=== PATIENT | female | born 1975 | race Caucasian/White ===

== ENCOUNTER 2018-02-26 03:41 | Emergency (ER) | payer SELFPAY ==
[2018-02-26] MEDS ORDERED: Ketorolac Tromethamine 30 MG/ML VIAL ONE (04:01)
[2018-02-26] MEDS ORDERED: Metoclopramide HCl 10 MG/2 ML VIAL ONE (04:01)
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
== END 2018-02-26 05:56 | disposition home or self-care (01) ==
LOC: ERS 03:41
DX: S09.90XA Unspecified injury of head, initial encounter (principal); E78.5 Hyperlipidemia, unspecified; F41.9 Anxiety disorder, unspecified; F32.9 Major depressive disorder, single episode, unspecified; F17.210 Nicotine dependence, cigarettes, uncomplicated; Z79.899 Other long term (current) drug therapy; W22.8XXA Striking against or struck by other objects, initial encounter
CPT/HCPCS: 70450; 96365; 96375; J1885; J2765

== ENCOUNTER 2018-04-07 19:34 | Emergency (ER) | payer SELFPAY ==
[2018-04-07] MEDS ORDERED: Acetaminophen/Codeine 30-300mg Tablet ONE (20:39)
[2018-04-07] MEDS ORDERED: Bupivacaine 0.5% 10 ML VIAL ONE ×2 (21:33→22:39)
== END 2018-04-07 23:03 | disposition home or self-care (01) ==
LOC: ERS 19:34
DX: K02.9 Dental caries, unspecified (principal); E78.5 Hyperlipidemia, unspecified; I44.7 Left bundle-branch block, unspecified; F41.9 Anxiety disorder, unspecified; F32.9 Major depressive disorder, single episode, unspecified; F17.210 Nicotine dependence, cigarettes, uncomplicated
CPT/HCPCS: 64400; J3490

== ENCOUNTER 2018-06-18 00:44 | Observation (INO) | payer SELFPAY ==
[2018-06-18 01:02] LABS: Bilirubin Negative (Negative); Blood, Urine Small (Negative); Clarity CLEAR (Clear); Glucose, Urine (Dipstick) Negative (Negative); Leukocyte Negative (Negative); Nitrite Negative (Negative); Protein, Urine (Dipstick) Negative (Neg-Trace); Specific Gravity, Urine 1.009 (1.002-1.036); Urobilinogen 0.2 mg/dL (0.2-1.0); pH, Urine 5.5 (5.0-9.0)
[2018-06-18 01:03] LABS: #Basophils 0.1 thou/uL (0.0-0.2); #Eosinphils 0.2 thou/uL (0.0-0.7); #Lymphocytes 3.6 thou/uL (1.20-3.40); #Monocytes 0.4 thou/uL (0.11-0.59); #Neutrophils 2.9 thou/uL (1.40-6.50); %Basophils 1.4 % (0.0-1.0); %Eosinophils 2.7 % (0.0-10.0); %Lymphocytes 49.6 % (21.0-51.0); %Monocytes 6.1 % (0.0-10.0); %Neutrophils 40.1 % (42.0-75.0); Hemoglobin 14.9 g/dL (12.0-16.0); Mean Corpuscular HGB CONC 36.2 g/dL (32.0-36.0); Mean Corpuscular Hemoglobin 32.8 pg (27.0-31.0); Mean Corpuscular Volume 90.8 fL (78.0-98.0); Mean Platelet Volume 7.5 fL (7.4-10.4); Platelet Count 318 thou/uL (130-400); RBC Distribution Width 11.3 % (11.5-14.5); Red Blood Cell (RBC) Count 4.53 mill/uL (4.20-5.40); White Blood Cell (WBC) Count 7.2 thou/uL (4.8-10.8)
[2018-06-18 01:04] LABS: Bacteria/HPF None Seen HPF (None Seen); Hyaline Casts/LPF 0-3 HYALINE CAST LPF (0-3 Hyaline); RBC/HPF 0-3 HPF (0-3); Squamous Epithelial 0-3 HPF (0-3); WBC/HPF 0-3 HPF (0-3)
[2018-06-18 01:25] LABS: ALT (SGPT) 22 U/L (8-55); AST (SGOT) 25 U/L (5-34); Albumin 4.4 g/dL (3.5-5.0); Alkaline Phosphatase 80 U/L (40-150); Anion Gap 14 mmol/L (10-20); BUN (Urea Nitrogen) 13 mg/dL (7.0-18.7); Bilirubin, Total 0.3 mg/dL (0.2-1.2); Calc. Creatinine Clearance 0 mL/min (70-130); Calcium 9.2 mg/dL (7.8-10.44); Carbon Dioxide 21 mmol/L (22-29); Chloride 108 mmol/L (98-107); Estimated GFR-MDRD 66; Globulin 3.1 g/dL (2.4-3.5); Glucose 103 mg/dL (70-105); Lipase 48 U/L (8-78); Protein, Total 7.5 g/dL (6.0-8.3); Sodium 139 mmol/L (136-145)
[2018-06-18] MEDS ORDERED: Lidocaine Viscous Sol 2% 15 ml UD Cup ONE (01:52)
[2018-06-18] MEDS ORDERED: Fentanyl 100 MCG/2 ML VIAL ONE ×5 (01:52→13:43)
[2018-06-18] MEDS ORDERED: Ketorolac Tromethamine 30 MG/ML VIAL ONE ×2 (01:52→13:31)
[2018-06-18] MEDS ORDERED: Mag-Al 1200 mg/1200 mg/30 ML UDCUP ONE (01:52)
[2018-06-18] MEDS ORDERED: Dicyclomine 20 MG TAB ONE (02:24)
[2018-06-18] MEDS ORDERED: Morphine 4 MG/ML VIAL ONE (02:24)
[2018-06-18] MEDS ORDERED: HYDROmorphone 0.5 MG/0.5 ML SYRINGE ONE (04:01)
[2018-06-18] MEDS ORDERED: Ondansetron PF 4 MG/2 ML Vial ONE ×2 (04:15→15:30)
[2018-06-18] MEDS ORDERED: Acetaminophen 1,000 MG in Premix Bag 1 BAG IVPB SCH (05:45)
[2018-06-18] MEDS ORDERED: Ondansetron ODT 4 MG TAB SL PRN (05:58)
[2018-06-18] MEDS ORDERED: Fentanyl 100 MCG/2 ML VIAL SLOW IVP PRN (05:58)
[2018-06-18] MEDS ORDERED: Ondansetron PF 4 MG/2 ML Vial IVP PRN ×2 (05:58→13:22)
[2018-06-18] MEDS: Dextrose 5 %-0.45 % NaCl 1,000 ML IV SCH ×2 (06:43→13:31)
[2018-06-18 06:52] VITALS: BMI 28.0
--- NOTE | 2018-06-18 07:33 | ULT ---
RIGHT UPPER QUADRANT ULTRASOUND: Date: 06/18/18 INDICATION: Right upper quadrant abdominal pain. COMPARISON: CT abdomen and pelvis dated 09/18/12 and abdominal ultrasound dated 03/21/09. FINDINGS: No focal hepatic lesion is evident. The gallbladder is contracted with multiple stones. Gallbladder w all measures 2.1 mm. No sonographic Waters's sign is reported. Common bile duct measures 2.4 mm. Flow is present within the main portal vein. Visualized aspects of the pancreas and right kidney are with in normal limits. The right kidney measured 10.0 cm in length. There is a right-sided extrarenal pelv es. No shaheed hydronephrosis is evident. IMPRESSION: Contracted gallbladder with gallstones, without overt sonographic evidence of acute cholecystitis. No additional sonographic abnormality within the right upper quadrant. POS: [facility]
[2018-06-18] MEDS ORDERED: cefOXitin Sodium/Dextrose,Iso 2 GM in Premix Bag 1 BAG IVPB SCH (09:00)
[2018-06-18] MEDS ORDERED: CEFAZOLIN 2 GM in Premix Bag 1 BAG IVPB SCH (09:00)
[2018-06-18] MEDS ORDERED: cefOXitin 2 GM VIAL ONE (12:06)
[2018-06-18] MEDS ORDERED: Sodium Chloride 0.9% 100 ML ONE (12:07)
[2018-06-18] MEDS ORDERED: Bupivacaine/Epinephrine 0.25% 30 ML VIAL ONE (12:37)
[2018-06-18] MEDS ORDERED: Mag-Al 1200 mg/1200 mg/30 ML UDCUP PO PRN (13:22)
[2018-06-18] MEDS ORDERED: Morphine 2 MG/ML SYRINGE SLOW IVP PRN (13:22)
[2018-06-18] MEDS ORDERED: Dextrose 5% in Water 1,000 ML IV PRN (13:22)
[2018-06-18] MEDS ORDERED: hydrALAZINE 20 MG/ML VIAL SLOW IVP PRN (13:22)
[2018-06-18] MEDS ORDERED: Morphine 4 MG/ML VIAL SLOW IVP PRN (13:22)
[2018-06-18] MEDS ORDERED: Calcium Carbonate 500 MG ChewTAB PO PRN (13:22)
[2018-06-18] MEDS ORDERED: Dextrose 50% Abboject 50 ML SYRINGE SLOW IVP PRN (13:22)
[2018-06-18] MEDS ORDERED: Promethazine HCl 25 MG/ML VIAL IM PRN ×2 (13:22→13:30)
[2018-06-18] MEDS ORDERED: HYDROcodone/Acetaminophen 10/325 mg Tablet PO PRN (13:22)
[2018-06-18] MEDS ORDERED: Ketorolac Tromethamine 30 MG/ML VIAL IVP PRN (13:30)
[2018-06-18] MEDS ORDERED: Ondansetron HCl/PF 4 MG/2 ML Vial IVP PRN (13:30)
[2018-06-18] MEDS ORDERED: Meperidine HCl/PF 25 MG/ML VIAL SLOW IVP PRN (13:30)
[2018-06-18] MEDS ORDERED: Promethazine HCl 25 MG/ML VIAL SLOW IVP PRN (13:30)
[2018-06-18] MEDS ORDERED: Morphine Sulfate 2 MG/ML SYRINGE SLOW IVP PRN (13:30)
[2018-06-18] MEDS ORDERED: HYDROmorphone 2 MG/ML VIAL SLOW IVP PRN (13:30)
[2018-06-18] MEDS ORDERED: Meperidine HCl/PF 25 MG/ML VIAL ONE (13:32)
[2018-06-18] MEDS ORDERED: Promethazine HCl 25 MG/ML VIAL ONE (13:34)
[2018-06-18] MEDS: D5 1/2 NS w/20 mEq KCL 1,000 ML IV SCH ×2 (14:31→20:27)
--- NOTE | 2018-06-18 15:00 | HP ---
CHIEF COMPLAINT: Right upper quadrant abdominal pain. HISTORY OF PRESENT ILLNESS: This is a 42-year-old female who developed severe right upper quadrant pain, radiating to back, associated with nausea. No vomiting. No fever. Last night came to the emergency room, was found to have gallstones. PAST MEDICAL HISTORY: Hyperlipidemia. PAST SURGICAL HISTORY: Hysterectomy. MEDICATIONS: ALLERGIES: ALLERGY TO HYDROCODONE CAUSING ITCHING. SOCIAL HISTORY: She is single. Works at a convenience store. Smokes one pack per week. Social alcohol. FAMILY HISTORY: Heart disease, prostate cancer, and esophageal cancer. PHYSICAL EXAMINATION: VITAL SIGNS: Temperature 98.2, pulse 74, blood pressure 126/73. GENERAL: She is a well-developed, well-nourished female, in no apparent distress. HEENT: No jaundice. LUNGS: Clear. HEART: Regular rate and rhythm. ABDOMEN: Soft. Mild tenderness in the right upper quadrant. EXTREMITIES: Unremarkable. LABORATORY DATA: Her white count is 7.2, hemoglobin and hematocrit 14 and 41, and platelet count 318. Electrolytes fine. LFTs normal. Urinalysis clear. Ultrasound showed cholelithiasis. No evidence of acute cholecystitis. The common bile duct was 2.4 mm. ASSESSMENT: Severe biliary colic. PLAN: Laparoscopic cholecystectomy. CONSENT: I discussed planned procedure as well as risk of bleeding, infection, injury to bile duct, injury to bowel, need to open. She understands and gives informed consent. Job ID: [id number]
[2018-06-18] MEDS ORDERED: Rocuronium Bromide 10 MG/ML (10ML VIAL) ONE (15:30)
[2018-06-18] MEDS ORDERED: Lidocaine 1% PF 5 ML VIAL ONE (15:30)
[2018-06-18] MEDS ORDERED: Glycopyrrolate 0.2 MG/ML 5 ML SYRINGE ONE (15:30)
[2018-06-18] MEDS ORDERED: Dexamethasone 20 MG/5 ML VIAL ONE (15:30)
[2018-06-18] MEDS ORDERED: PROPOFOL 200 MG/20 ML VIAL ONE (15:30)
[2018-06-18] MEDS: HYDROcodone/Acetaminophen 10/325 mg Tablet PO PRN ×2 (15:51→22:22)
[2018-06-18] MEDS: Ketorolac Tromethamine 30 MG/ML VIAL IVP SCH ×2 (17:21→22:31)
[2018-06-18] MEDS: Famotidine 20 MG TAB PO SCH (20:25)
[2018-06-18] MEDS: Famotidine/PF 20 mg/2ml Vial SLOW IVP SCH (20:27)
--- NOTE | 2018-06-18 20:44 | OP ---
DATE OF PROCEDURE: 06/18/2018 PREOPERATIVE DIAGNOSIS: Chronic cholecystitis. PROCEDURE PERFORMED: Laparoscopic cholecystectomy. INDICATIONS: A 42-year-old female, who has been having episodic right upper quadrant pain. She had a very severe episode last night. Ultrasound showed cholelithiasis. FINDINGS: She had a contracted gallbladder. There were adhesions to it. Stones were present. Cystic duct did not appear to be dilated. DESCRIPTION OF PROCEDURE: After informed consent was obtained, the patient was taken to the operating room, given general endotracheal anesthesia, placed in the supine position. Abdomen was prepped and draped in usual fashion. Local anesthesia was infiltrated subcutaneously and deep. Subumbilical incision was performed. Subcu was divided sharply. The fascia was grasped with two stay sutures of 0 Vicryl placed in each side of midline. Midline was incised. Digital palpation revealed no local adhesions. A blunt 10/12 trocar was inserted. Pneumoperitoneum was created to a pressure of 15 mmHg. A 0-degree laparoscope was inserted under direct vision. Three 5 mm ports were placed subcostally. The gallbladder was grasped and advanced superiorly. Peritoneum was lysed distally, revealed cystic duct and artery, these were dissected out. The cystic duct and artery were triply ligated with hemoclips and divided. The gallbladder was removed from its fossa utilizing electrocautery, removed from the abdomen through the umbilical port. Hemostasis was assured. Trocars and retractors were removed. The fascia was closed with interrupted 0 Vicryl suture. The skin was closed with interrupted 4-0 Rapide. Dermabond was applied. The patient tolerated the procedure well, transferred to Recovery in good condition. Sponge and needle count verified correct x2. Job ID: [id number]
[2018-06-19 05:07] LABS: #Lymphocytes 1.5 thou/uL (1.20-3.40); #Monocytes 0.7 thou/uL (0.11-0.59); %Basophils 0.5 % (0.0-1.0); %Eosinophils 0.4 % (0.0-10.0); %Lymphocytes 15.8 % (21.0-51.0); %Monocytes 7.4 % (0.0-10.0); Hemoglobin 13.3 g/dL (12.0-16.0); Mean Corpuscular HGB CONC 35.1 g/dL (32.0-36.0); Mean Corpuscular Hemoglobin 32.6 pg (27.0-31.0); Mean Corpuscular Volume 92.8 fL (78.0-98.0); Platelet Count 292 thou/uL (130-400); RBC Distribution Width 11.5 % (11.5-14.5); Red Blood Cell (RBC) Count 4.09 mill/uL (4.20-5.40); White Blood Cell (WBC) Count 9.2 thou/uL (4.8-10.8)
[2018-06-19 05:08] LABS: ALT (SGPT) 37 U/L (8-55); AST (SGOT) 34 U/L (5-34); Alkaline Phosphatase 62 U/L (40-150); Anion Gap 13 mmol/L (10-20); BUN (Urea Nitrogen) 12 mg/dL (7.0-18.7); Bilirubin, Total 0.6 mg/dL (0.2-1.2); Calc. Creatinine Clearance 119 mL/min (70-130); Carbon Dioxide 21 mmol/L (22-29); Chloride 105 mmol/L (98-107); Estimated GFR-MDRD 84; Globulin 2.6 g/dL (2.4-3.5); Glucose 110 mg/dL (70-105); Lipase 10 U/L (8-78); Protein, Total 6.6 g/dL (6.0-8.3); Sodium 135 mmol/L (136-145)
[2018-06-19] MEDS: HYDROcodone/Acetaminophen 10/325 mg Tablet PO PRN ×2 (05:40→11:39)
[2018-06-19] MEDS: Ketorolac Tromethamine 30 MG/ML VIAL IVP SCH ×2 (05:42→11:12)
[2018-06-19] MEDS: D5 1/2 NS w/20 mEq KCL 1,000 ML IV SCH (05:43)
[2018-06-19] MEDS: Famotidine/PF 20 mg/2ml Vial SLOW IVP SCH (08:35)
[2018-06-19] MEDS: Famotidine 20 MG TAB PO SCH (08:55)
[2018-06-19] MEDS ORDERED: Enoxaparin Sodium 40 MG/0.4 ML SYRINGE SC SCH ×2 (09:00)
[2018-06-19 11:47] VITALS: BP 120/76; TEMP 98.4
--- NOTE | 2018-06-19 12:42 | DIS ---
DATE OF ADMISSION: 06/18/2018 DATE OF DISCHARGE: 06/19/2018 DISCHARGE DIAGNOSIS: Acute cholecystitis. PROCEDURES DURING ADMISSION: Laparoscopic cholecystectomy. HOSPITAL COURSE: The patient was admitted, given IV fluids, IV antibiotics, taken to the operating room, where she underwent a laparoscopic cholecystectomy. Postoperatively, she has done well. She is tolerating diet. Pain is controlled on p.o. medications. She is discharged home on hydrocodone and Zofran. She will follow up with me in 2 weeks. Job ID: [id number]
== END 2018-06-19 12:15 | disposition home or self-care (01) ==
LOC: ERS 00:44 → SURG A 04:18
PROVIDERS: ADMIT Surgery; ATTEND Surgery
PROC: 0FT44ZZ Resection of Gallbladder, Percutaneous Endoscopic Approach (ICD-10-PCS; principal; 2018-06-18)
DX: K80.12 Calculus of gallbladder with acute and chronic cholecystitis without obstruction (principal); K82.8 Other specified diseases of gallbladder; E78.5 Hyperlipidemia, unspecified; F17.210 Nicotine dependence, cigarettes, uncomplicated; E78.00 Pure hypercholesterolemia, unspecified; I44.7 Left bundle-branch block, unspecified; F17.220 Nicotine dependence, chewing tobacco, uncomplicated; F17.290 Nicotine dependence, other tobacco product, uncomplicated; Z88.5 Allergy status to narcotic agent
CPT/HCPCS: 36415; 76705; 80053; 81003; 81015; 83690; 85025; 88304; 96361; 96372; 96374; 96375; 96376; 99406; G0378; J0131; J0694; J1100; J1170; J1650; J1885; J2001; J2175; J2270; J2405; J2550; J2704; J3010; J3490

== ENCOUNTER 2018-12-25 16:15 | Emergency (ER) | payer SELFPAY | END 2018-12-25 16:35 | disposition home or self-care (01) | LOC: ERS 16:15 | DX: K03.81 Cracked tooth (principal); E78.5 Hyperlipidemia, unspecified; E78.00 Pure hypercholesterolemia, unspecified; F41.9 Anxiety disorder, unspecified; F32.9 Major depressive disorder, single episode, unspecified; F17.210 Nicotine dependence, cigarettes, uncomplicated; Z79.899 Other long term (current) drug therapy | CPT/HCPCS: 99282 ==

== ENCOUNTER 2019-04-26 14:02 | Outpatient (CLI) | payer OTHER ==
--- NOTE | 2019-04-26 14:23 | RAD ---
4 views left knee: 04/26/2019 COMPARISON: None HISTORY: Knee pain FINDINGS: No fracture or dislocation. No radiopaque foreign body or subcutaneous gas. No knee joint e ffusion. IMPRESSION: No acute findings.
== END 2019-04-26 14:03 | disposition home or self-care (01) ==
LOC: RAD-FRANK 14:02
PROVIDERS: ATTEND Nurse Practitioner Family
DX: M25.562 Pain in left knee (principal)

== ENCOUNTER 2019-05-12 15:20 | Emergency (ER) | payer SELFPAY ==
--- NOTE | 2019-05-12 15:59 | RAD ---
LEFT KNEE 4 VIEWS: HISTORY: Fell 2 weeks ago on left knee. FINDINGS: There are no signs of fracture or dislocation. A small joint effusion is present. If internal deran gement is suspected, MRI is suggested. IMPRESSION: Very small joint effusion. POS: [facility]
== END 2019-05-12 17:28 | disposition home or self-care (01) ==
LOC: ERS 15:20
DX: M25.562 Pain in left knee (principal); E78.5 Hyperlipidemia, unspecified; E78.00 Pure hypercholesterolemia, unspecified; F41.9 Anxiety disorder, unspecified; F32.9 Major depressive disorder, single episode, unspecified; F17.220 Nicotine dependence, chewing tobacco, uncomplicated; F17.210 Nicotine dependence, cigarettes, uncomplicated; F17.290 Nicotine dependence, other tobacco product, uncomplicated; Z79.899 Other long term (current) drug therapy; W18.30XA Fall on same level, unspecified, initial encounter

== ENCOUNTER 2019-12-07 22:56 | Emergency (ER) | payer SELFPAY ==
[2019-12-07] MEDS ORDERED: Ondansetron PF 4 MG/2 ML Vial ONE (23:34)
--- NOTE | 2019-12-07 23:55 | RAD ---
XR Chest 1 View Portable HISTORY: Dyspnea, cough COMPARISON: 02/06/2015 FINDINGS: The heart size is normal. The lungs are well expanded without focal areas of consolidation, pneumothorax or pleural effusions. IMPRESSION: No radiographic evidence of acute cardiopulmonary process.
[2019-12-07 23:58] LABS: #Basophils 0.1 thou/uL (0.0-0.2); #Eosinphils 0.2 thou/uL (0.0-0.7); #Lymphocytes 3.3 thou/uL (1.20-3.40); #Monocytes 0.4 thou/uL (0.11-0.59); #Neutrophils 5.2 thou/uL (1.40-6.50); %Basophils 1.1 % (0.0-1.0); %Lymphocytes 35.8 % (21.0-51.0); %Monocytes 3.9 % (0.0-10.0); %Neutrophils 57.2 % (42.0-75.0); Hemoglobin 15.3 g/dL (12.0-16.0); Mean Corpuscular HGB CONC 35.9 g/dL (32.0-36.0); Mean Corpuscular Hemoglobin 32.8 pg (27.0-31.0); Mean Corpuscular Volume 91.5 fL (78.0-98.0); Mean Platelet Volume 7.4 fL (7.4-10.4); Platelet Count 337 thou/uL (130-400); Red Blood Cell (RBC) Count 4.65 mill/uL (4.20-5.40); White Blood Cell (WBC) Count 9.1 thou/uL (4.8-10.8)
[2019-12-08 00:19] LABS: ALT (SGPT) 31 U/L (8-55); AST (SGOT) 20 U/L (5-34); Albumin 4.3 g/dL (3.5-5.0); Alkaline Phosphatase 85 U/L (40-110); Anion Gap 16 mmol/L (10-20); BUN (Urea Nitrogen) 16 mg/dL (7.0-18.7); Bilirubin, Total 0.3 mg/dL (0.2-1.2); Calc. Creatinine Clearance 0 mL/min (70-130); Calcium 8.6 mg/dL (7.8-10.44); Carbon Dioxide 18 mmol/L (22-29); Chloride 108 mmol/L (98-107); Estimated GFR-MDRD 81; Globulin 3.2 g/dL (2.4-3.5); Glucose 87 mg/dL (70-105); Potassium 3.3 mmol/L (3.5-5.1); Protein, Total 7.5 g/dL (6.0-8.3); Sodium 139 mmol/L (136-145)
== END 2019-12-08 00:54 | disposition home or self-care (01) ==
LOC: ERS 22:56
DX: J06.9 Acute upper respiratory infection, unspecified (principal); E78.5 Hyperlipidemia, unspecified; E78.00 Pure hypercholesterolemia, unspecified; F41.9 Anxiety disorder, unspecified; F32.9 Major depressive disorder, single episode, unspecified; F17.220 Nicotine dependence, chewing tobacco, uncomplicated; Z79.899 Other long term (current) drug therapy
CPT/HCPCS: 71045; 80053; 83880; 84484; 85025; 85379; 87804; 93005; 96374; J2405

== ENCOUNTER 2019-12-22 14:16 | Emergency (ER) | payer SELFPAY ==
[2019-12-22] MEDS ORDERED: Dexamethasone 4 mg/ml Vial ONE (15:53)
== END 2019-12-22 15:01 | disposition home or self-care (01) ==
LOC: ERS 14:16
DX: L50.0 Allergic urticaria (principal); I10 Essential (primary) hypertension; E78.5 Hyperlipidemia, unspecified; E78.00 Pure hypercholesterolemia, unspecified; F41.9 Anxiety disorder, unspecified; F32.9 Major depressive disorder, single episode, unspecified; F17.210 Nicotine dependence, cigarettes, uncomplicated; Z79.899 Other long term (current) drug therapy
CPT/HCPCS: 99283; J1100

== ENCOUNTER 2019-12-24 11:47 | Emergency (ER) | payer SELFPAY | END 2019-12-24 13:12 | disposition home or self-care (01) | LOC: ERS 11:47 | DX: L50.1 Idiopathic urticaria (principal); E78.5 Hyperlipidemia, unspecified; E78.00 Pure hypercholesterolemia, unspecified; F41.9 Anxiety disorder, unspecified; F17.210 Nicotine dependence, cigarettes, uncomplicated; Z79.899 Other long term (current) drug therapy | CPT/HCPCS: 99282 ==

== ENCOUNTER 2020-07-09 10:03 | Emergency (ER) | payer SELFPAY ==
[2020-07-09 10:38] LABS: #Basophils 0.1 thou/uL (0.0-0.2); #Eosinphils 0.2 thou/uL (0.0-0.7); #Lymphocytes 1.8 thou/uL (1.20-3.40); #Monocytes 0.4 thou/uL (0.11-0.59); #Neutrophils 2.2 thou/uL (1.40-6.50); %Basophils 1.9 % (0.0-1.0); %Eosinophils 4.4 % (0.0-10.0); %Lymphocytes 37.9 % (21.0-51.0); %Monocytes 9.3 % (0.0-10.0); %Neutrophils 46.5 % (42.0-75.0); Hemoglobin 14.1 g/dL (12.0-16.0); Mean Corpuscular HGB CONC 35.3 g/dL (32.0-36.0); Mean Corpuscular Hemoglobin 32.4 pg (27.0-31.0); Mean Corpuscular Volume 91.6 fL (78.0-98.0); Mean Platelet Volume 7.3 fL (7.4-10.4); Platelet Count 279 thou/uL (130-400); Red Blood Cell (RBC) Count 4.36 mill/uL (4.20-5.40); White Blood Cell (WBC) Count 4.6 thou/uL (4.8-10.8)
[2020-07-09 10:57] LABS: ALT (SGPT) 71 U/L (8-55); AST (SGOT) 39 U/L (5-34); Albumin 4.1 g/dL (3.5-5.0); Alkaline Phosphatase 66 U/L (40-110); Anion Gap 14 mmol/L (10-20); BUN (Urea Nitrogen) 15 mg/dL (7.0-18.7); Bilirubin, Total 0.5 mg/dL (0.2-1.2); Calc. Creatinine Clearance 0 mL/min (70-130); Calcium 9.7 mg/dL (7.8-10.44); Carbon Dioxide 24 mmol/L (22-29); Chloride 103 mmol/L (98-107); Globulin 3.2 g/dL (2.4-3.5); Glucose 97 mg/dL (70-105); Potassium 3.7 mmol/L (3.5-5.1); Protein, Total 7.3 g/dL (6.0-8.3); Sodium 137 mmol/L (136-145)
[2020-07-09] MEDS ORDERED: Aspirin Chewable 81 MG TAB ONE (11:29)
[2020-07-09] MEDS ORDERED: Nitroglycerin 0.4 MG TAB 1 EACH ONE (12:39)
[2020-07-09 14:22] LABS: Troponin I Less than 0.010 ng/mL (< 0.028)
== END 2020-07-09 16:12 | disposition home or self-care (01) ==
LOC: ERS 10:03
DX: N60.02 Solitary cyst of left breast (principal); R07.89 Other chest pain; E78.00 Pure hypercholesterolemia, unspecified; I10 Essential (primary) hypertension; Z87.891 Personal history of nicotine dependence; Z79.899 Other long term (current) drug therapy
CPT/HCPCS: 36415; 71046; 80053; 84484; 85025; 93005

== ENCOUNTER 2022-11-21 09:22 | Emergency (ER) | payer SELFPAY ==
[2022-11-21] MEDS ORDERED: Ibuprofen 200 MG TAB ONE (09:38)
== END 2022-11-21 10:49 | disposition home or self-care (01) ==
LOC: ERS 09:22
DX: U07.1 COVID-19 (principal); E78.00 Pure hypercholesterolemia, unspecified; I10 Essential (primary) hypertension; Z87.891 Personal history of nicotine dependence; Z79.899 Other long term (current) drug therapy
CPT/HCPCS: 87635; 99283

== ENCOUNTER 2025-01-24 00:59 | Emergency (ER) | payer SELFPAY | END 2025-01-24 02:21 | disposition home or self-care (01) | LOC: ERS 00:59 | DX: J06.9 Acute upper respiratory infection, unspecified (principal); B97.89 Other viral agents as the cause of diseases classified elsewhere; I10 Essential (primary) hypertension; Z87.891 Personal history of nicotine dependence | CPT/HCPCS: 87081; 87428; 87430; 99283 ==